=== PATIENT | female | born 1960 | race Two or more races ===

== ENCOUNTER 2018-07-09 14:31 | Emergency (ER) | payer OTHER ==
[~2018-07-09] VITALS: Ht 162.6 cm; Wt 57.2 kg
--- NOTE | 2018-07-09 14:35 | NUR ---
LOGAN FROM HOME DT PATIENT SEEMS ALTERED, PATIENT IS WAKE AND ALERT, NOT IN DISTRESS. SKIN IS WARM TO TOUCH AND NON DIAPHORETIC. PATIENT NOAH AFBERILE. VSS. GOWNED PT AND PLACED ON TELE MONITOR.
--- NOTE | 2018-07-09 14:46 | NUR ---
SON AT THE BS WITH MD FOR INFO. VSS. WILL MONITOR.
--- NOTE | 2018-07-09 14:49 | NUR ---
CODE STROKE CALLED
--- NOTE | 2018-07-09 14:50 | NUR ---
NEUROLOGIST DR NOLAND CONTACTED
--- NOTE | 2018-07-09 14:50 | NUR ---
ACTIVATED TELE-STROKE
--- NOTE | 2018-07-09 14:50 | NUR ---
ACTIVATED CODE STROKE
--- NOTE | 2018-07-09 14:54 | NUR ---
PT TAKEN TO CT.
[2018-07-09] MEDS ORDERED: CT SWABBABLE VALVE TRANS SET 1 EA INFUS.SET MC ONE (14:55)
[2018-07-09] MEDS ORDERED: IOHEXOL-350 100 ML VIAL IV ONE (14:55)
[2018-07-09] MEDS ORDERED: IV NS 0.9% 250 ML IV ONE (14:55)
--- NOTE | 2018-07-09 14:55 | NUR ---
DR NOLAND SPEAKING WITH DR HENDRIX FOR THIS PATIENT
[2018-07-09 15:00] LABS: BASOPHILS # (AUTO) 0.1 /CMM (0.0-0.2); BASOPHILS % (AUTO) 0.7 % (0.0-2.0); EOSINOPHILS % (AUTO) 1.1 % (0.0-6.0); HEMATOCRIT 39 % (33-45); HEMOGLOBIN 13.3 g/dL (11.5-14.8); LYMPHOCYTES % (AUTO) 34.5 % (20.0-44.0); MEAN CORPUSCULAR HEMOGLOBIN 30 PG (26.0-33.0); MEAN CORPUSCULAR HGB CONC 34 g/dl (31.0-36.0); MEAN CORPUSCULAR VOLUME 89 fL (82-100); MONOCYTES # (AUTO) 0.6 /CMM (0.1-1.30); MONOCYTES % (AUTO) 5.3 % (2.0-12.0); NEUTROPHILS # (AUTO) 6.7 /CMM (1.8-8.9); NEUTROPHILS % (AUTO) 58.4 % (43.0-81.0); PLATELET COUNT (AUTO) 362 /CMM (150-450); RDW COEFFICIENT OF VARIATION 12.5 (11.5-15.0); WHITE BLOOD COUNT (AUTO) 11.5 K/uL (4.3-11.0)
[2018-07-09] MEDS ORDERED: ONDANSETRON HCL/PF 4 MG/2 ML VIAL ONE (15:05)
--- NOTE | 2018-07-09 15:08 | NUR ---
PATIENT VOMITTED X [address] ZOFRAN GIVEN ORDERED
--- NOTE | 2018-07-09 15:15 | NUR ---
PT IS BACK FROM CT
[2018-07-09 15:16] LABS: INR 0.96 (0.85-1.15)
[2018-07-09] MEDS ORDERED: ONDANSETRON HCL/PF - ER 4 MG/2 ML VIAL IV ONE (15:30)
[2018-07-09 15:37] LABS: CALCIUM, SERUM 8.6 mg/dL (8.5-10.1); CARBON DIOXIDE 27 mmol/L (21-32); CHLORIDE 104 mmol/L (98-107); CREATININE 0.8 mg/dL (0.6-1.3); GLUCOSE 147 mg/dL (74-106); POTASSIUM 2.9 mmol/L (3.5-5.1); SODIUM SERUM 141 mmol/L (136-145); UREA NITROGEN, BLOOD 9 mg/dL (7-18)
[2018-07-09 15:46] LABS: TROPONIN I < 0.017 ng/mL (0.00-0.056)
[2018-07-09 15:55] LABS: CHOLESTEROL 146 mg/dL (<200); HDL CHOLESTEROL 57 mg/dL (40-60); LDL 72 mg/dL (0-99); TRIGLYCERIDES 115 mg/dL (30-150)
[2018-07-09] MEDS ORDERED: POTASSIUM CHLORIDE 20 MEQ TAB.PRT.SR PO ONE ×4 (16:00→16:30)
[2018-07-09 16:14] VITALS: BP 153/90
--- NOTE | 2018-07-09 16:19 | NUR ---
Patient discharged to home in stable condition. Written and verbal after care instructions given. Patient verbalizes understanding of instruction.
--- NOTE | 2018-07-09 16:19 | NUR ---
IV removed. Catheter intact and site benign. Pressure and 4x4 applied to site. No bleeding noted.
--- NOTE | 2018-07-09 16:21 | NUR ---
IV removed. Catheter intact and site benign. Pressure and 4x4 applied to site. No bleeding noted.Patient discharged to home in stable condition. Written and verbal after care instructions given. Patient verbalizes understanding of instruction.
== END 2018-07-09 16:21 | disposition home or self-care (01) ==
LOC: ER 14:34
DX: F41.9 Anxiety disorder, unspecified (principal); E87.6 Hypokalemia; F17.200 Nicotine dependence, unspecified, uncomplicated; Z98.890 Other specified postprocedural states
CPT/HCPCS: 36415; 70450; 70496; 70498; 71045; 80048; 80061; 82962; 84484; 85025; 85730; 93005; 96374; 99285; A4606; J2405; J7050; Q9967; Z7610